=== PATIENT | male | born 1970 | race Caucasian/White ===

== ENCOUNTER 2018-08-18 04:00 | Emergency (ER) | payer MEDICAID, OTHER ==
[~2018-08-18] VITALS: Wt 99.3 kg
[2018-08-18 04:05] VITALS: BP 138/87; PULSE 99; RESP 18
[2018-08-18] MEDS ORDERED: AMOX500C2 PO (05:03)
[2018-08-18] MEDS ORDERED: D-ME473S2 PO (05:03)
--- NOTE | 2018-08-18 05:05 | ERD ---
ER Documentation Chief Complaint Chief Complaint ST X'S 3 DAYS HPI 47-year-old male presents with sore throat for the last 3 days. He has pain with swallowing. He has mild nasal congestion. Has no cough. He has no measured fevers although may have subjective chills and fevers. Denies chest pain, vomiting, abdominal pain. ROS All systems reviewed and are negative except as per history of present illness. Medications Home Meds Active Scripts Amoxicillin* (Amoxicillin*) 500 Mg Cap, 500 MG PO TID for 10 Days, CAP Prov:ALYSA AMOS MD 08/18/18 Dextromethorphan Hb-Promethazine Hcl* (Promethazine DM* Syrup) 473 Ml Syrup, 5 ML PO Q6 PRN for COUGH for 5 Days, ML Prov:ALYSA AMOS MD 08/18/18 Allergies Allergies: Coded Allergies: No Known Allergy (Unverified , 08/18/18) PMhx/Soc Medical and Surgical Hx: pt denies Medical Hx, pt denies Surgical Hx Hx Alcohol Use: No Hx Substance Use: No Hx Tobacco Use: No Smoking Status: Never smoker FmHx Family History: No diabetes, No coronary disease, No other Physical Exam Vitals Vital Signs Date Temp Pulse Resp B/P (MAP) Pulse Ox O2 O2 Flow FiO2 Time Delivery Rate 08/18/18 99.5 99 18 138/87 96 04:05 (104) Physical Exam Const: No acute distress Head: Atraumatic Eyes: Normal Conjunctiva ENT: Normal External Ears, Nose and Mouth. Erythema posterior oropharynx. Uvula midline. Tender anterior cervical lymphadenitis. Nasal congestion. Neck: Full range of motion. No meningismus. Resp: Clear to auscultation bilaterally Cardio: Regular rate and rhythm, no murmurs Abd: Soft, non tender, non distended. Normal bowel sounds Skin: No petechiae or rashes Back: No midline or flank tenderness Ext: No cyanosis, or edema Neur: Awake and alert Psych: Normal Mood and Affect Results 24 hrs Current Medications Medications Dose Sig/Alisha Start Time Status Last (Trade) Ordered Route PRN Stop Time Admin Dose Reason Admin 10 mg ONCE ONCE 08/18/18 DC 08/18/18 Dexamethasone IM 05:30 08/18/18 05:09 (Decadron) 05:30 Procedures/MDM Patient presents with signs of pharyngitis and URI symptoms. He may have viral URI. Given patient request we will treat empirically with amoxicillin, Promethazine DM. He was given Decadron 10 mg IM for vaginitis. No signs of airway obstruction, abscess, hypoxemia, respiratory distress. The patient was stable with no new complaints during the ER course. Clinically, there is no current evidence to suggest meningitis, sepsis, acute abdomen, pneumonia, stroke, acute coronary syndrome, pulmonary embolism, aortic dissection or any other emergent condition appearing to require further evaluation or hospitalization. Patient counseled regarding my diagnostic impression and care plan. Prior to discharge all questions answered. Pt agrees with treatment plan and understands strict return precautions. Pt is instructed to follow up with primary care provider within 24-48 hours. Precautionary instructions provided including instructions to return to the ER if not improving or for any worsening or changing symptoms or concerns. Disclaimer: Inadvertent spelling and grammatical errors are likely due to EHR/dictation software use and do not reflect on the overall quality of patient care. Also, please note that the electronic time recorded on this note does not necessarily reflect the actual time of the patient encounter. Departure Diagnosis: Primary Impression: URI, acute Additional Impression: Sore throat Condition: Stable Patient Instructions: Pharyngitis, Strep (Presumed) Additional Instructions: Recheck for new or worsening symptoms with primary care doctor. ALYSA AMOS MD August 18, 2018 05:05
[2018-08-18] MEDS ORDERED: DEXAMETHASONE 10 MG/ML 1 ML INJ IM ONE (05:30)
== END 2018-08-18 05:13 | disposition home or self-care (01) ==
LOC: FTE 04:00
DX: J06.9 Acute upper respiratory infection, unspecified (principal)
CPT/HCPCS: 96372; J1100; Z7502

== ENCOUNTER 2018-11-17 03:24 | Emergency (ER) | payer SELFPAY ==
[~2018-11-17] VITALS: Ht 152.4 cm; Wt 98.9 kg
[~2018-11-17 03:24] MED LIST: AMOX500C2 PO; D-ME473S2 PO; IBUP-1542 PO
[2018-11-17 03:27] VITALS: BP 147/87; PULSE 62; RESP 21; Ht 152.4 cm; Wt 98.9 kg
--- NOTE | 2018-11-17 04:27 | ERD ---
ER Documentation Chief Complaint Chief Complaint PT STATES THROAT "SWELLING" AT NIGHTS W/ SOB, UNABLE TO SLEEP X3 DAYS HPI Patient is a 48-year-old male who presents with a sore throat. He said it is worse with sleeping at night. He said that when he falls asleep he feels like his throat is going to close and he wakes up suddenly. He feels like he is not getting a good night sleep. He does not currently have a primary doctor. He has no fevers. He has had no treatment as of yet. ROS All systems reviewed and are negative except as per history of present illness. Medications Home Meds Active Scripts Ibuprofen* (Motrin*) 600 Mg Tab, 600 MG PO Q6H PRN for PAIN AND OR ELEVATED TEMP, #30 TAB Prov:MILI ELENA MD 11/17/18 Amoxicillin* (Amoxicillin*) 500 Mg Cap, 500 MG PO TID for 10 Days, CAP Prov:ALYSA AMOS MD 08/18/18 Dextromethorphan Hb-Promethazine Hcl* (Promethazine DM* Syrup) 473 Ml Syrup, 5 ML PO Q6 PRN for COUGH for 5 Days, ML Prov:ALYSA AMOS MD 08/18/18 Allergies Allergies: Coded Allergies: No Known Allergy (Unverified , 08/18/18) PMhx/Soc Medical and Surgical Hx: pt denies Medical Hx, pt denies Surgical Hx Hx Alcohol Use: No Hx Substance Use: No Hx Tobacco Use: No Smoking Status: Never smoker FmHx Family History: No diabetes Physical Exam Vitals Vital Signs Date Temp Pulse Resp B/P (MAP) Pulse Ox O2 O2 Flow FiO2 Time Delivery Rate 11/17/18 97.7 62 21 147/87 95 03:27 (107) Physical Exam Const: No acute distress, obese male Head: Atraumatic Eyes: Normal Conjunctiva ENT: Large tongue and a thick neck, patient appears to likely have obesity hypoventilation syndrome and obstructive sleep apnea Neck: Full range of motion. No meningismus. Resp: Clear to auscultation bilaterally Cardio: Regular rate and rhythm, no murmurs Abd: Soft, non tender, non distended. Normal bowel sounds Skin: No petechiae or rashes Back: No midline or flank tenderness Ext: No cyanosis, or edema Neur: Awake and alert Psych: Normal Mood and Affect Procedures/MDM Patient is a 48-year-old male who presents with symptoms consistent with obstructive sleep apnea. I will give the patient a prescription for ibuprofen for pain as well as a CPAP machine prescription. I believe he would benefit from CPAP at night. The patient can follow-up with a primary doctor within 1 week. He will be given information for the local clinics. He can return for any worsening symptoms. I see no sign of infection at this time. I doubt pharyngitis, epiglottitis, retropharyngeal abscess, or peritonsillar abscess. Departure Diagnosis: Primary Impression: Obstructive sleep apnea Additional Impression: Sore throat Condition: Fair Patient Instructions: Sleep Apnea, Obstructive (Adult) [facility] Usted se maddox hecho un examen mdico de control que le indica que no est en riky condicin que requiera tratamiento urgente en el Departamento de Emergencia. Un estudio ms profundo y el tratamiento de gonzalez condicin pueden esperar sin ningn riesgo hasta que usted sea atendida/o en el consultorio de gonzalez mdico o riky clnica. Es responsabilidad suya arreglar riky jessi para el seguimiento del [place]. MANEJO DE CONDICIONES NO URGENTES EN EL FUTURO 1) Si usted tiene un mdico de atencin primaria: Usted debera llamar a gonzalez mdico de atencin primaria antes de venir al departamento de emergencia. Despus de las horas de consultorio, gonzalez doctor o gonzalez asociado/a est disponible por telfono. El mdico o enfermero de christina en el servicio telefnico puede asesorarle por caitlin medio para atender el problema, o [place] contrario se puede programar riky jessi. 2) Si usted no tiene un mdico de atencin primaria: Llame al mdico o clnica de referencia que aparece abajo ruben las horas de consultorio para hacer riky jessi para que le vean. CLINICAS: [facility] [phone] [facility] [phone] [facility] [phone] [place] [address] [phone] [place] [address] [phone] [place] [phone] Additional Instructions: Llame al doctor nombrado abajo (Referral Sources) MAANA y darrel riky JESSI PARA DENTRO DE RIKY SEMANA. Dgale a la secretaria que nosotros le instruimos hacer esta jessi.Avise o llame si gonzalez condicin se empeora antes de la jessi. MILI ELENA MD Nov 17, 2018 04:27
== END 2018-11-17 04:26 | disposition home or self-care (01) ==
LOC: FTE 03:24
DX: G47.33 Obstructive sleep apnea (adult) (pediatric) (principal)
CPT/HCPCS: 99282